=== PATIENT | female | born 1980 | race Caucasian/White ===

== ENCOUNTER → 2020-04-02 14:33 | Outpatient (BNVA) | payer SELFPAY | PROVIDERS: PCP Internal Medicine; Referring Provider Internal Medicine; Visit Provider Student in an Organized Health Care Education/Training Program | DX: M77.02 Medial epicondylitis, left elbow (principal) | CPT/HCPCS: 99212 ==

== ENCOUNTER → 2021-01-27 08:58 | Outpatient (BNVA) | payer OTHER, SELFPAY | PROVIDERS: PCP Internal Medicine; Visit Provider Student in an Organized Health Care Education/Training Program ==